=== PATIENT | male | born 2005 | race Caucasian/White ===

== ENCOUNTER 2025-08-13 13:05 | Outpatient (REF) | payer MEDICAID, SELFPAY ==
--- OUTSIDE RECORDS SUMMARY | 2025-08-13 09:15 | XMS_ITS | Encounter Summary ---
Author Organization [employer] Address [address] [facility] [address] [place] [address] Care Team Providers Care Grocery Store Manager Name Role Phone Nasreen Eaton Primary Care Provider [phone] Encounter Details Date Type Department Care Team ([facility] Contact Info) Description 08/13/2025 9:15 AM EST Office Visit [facility] MED [facility] PED[facility] [address] [place] [address] Nasreen Eaton FNP [address] [place] [address] Encounter for routine history and physical examination of adult (Primary Dx); Vision screen without abnormal findings; Dietary counseling; Exercise counseling; Sleep difficulties Social History Tobacco Use Types Packs/Day Years Used Date Smoking Tobacco: Former Cigarettes Passive Smoke Exposure: Never Smokeless Tobacco: Never Tobacco Cessation:Counseling Given: Not Answered Alcohol Answer Date Recorded How often do you have a drink containing alcohol ? 0 08/13/2025 How many drinks containing a lcohol do you have on a typical day when you are drinking? 0 08/13/2025 How often do you have six or more drinks on one occasion? 0 08/13/2025 Depression Answer Date Recorded Patient Health Questionnaire-9 Score 3 08/13/2025 Patient Health Questionnaire-9 Score 3 08/13/2025 Last PHQ-9: Questionnaire Data Not on file 1 Housing Stability Answer Date Recorded What is your housing situation today? I have pati callahan 07/23/[address] you li ve. Do you have problems with any of the following? None of the above 07/23/2025 Food Insecurity Answer Date Recorded Within the past 12 months, y ou worried that your food would run out before you got money to buy more: Never True 07/23/2025 Within the past 12 months,th e food you bought just didn't last and you didn't have enough money to get more: Never True 03/2025 Transportation Answer Date Recorded In the past 12 months, has l ack of transportation kept you from medical appts, meetings, work or from getting things needed for daily living? No 07/23/2025 Utilities Answer Date Recorded In the past 12 months, has t he electric, gas, oil or water company threatened to shut off services in your home? No 07/23/2025 Depression Answer Date Recorded Patient Health Questionnaire-2 Score 0 08/13/2025 Internet Access Answer Date Recorded Internet Access Q1 Yes 07/23/2025 Internet Access Q2 Not on file 07/23/2025 Sex and Gender Information Value Date Recorded Sex Assigned at Male 06/15/2022 10:21 AM EDT Legal Sex Male 10:21 AM EDT Gender Identity Male 06/15/2022 10:21 AM EDT Sexual Orientation Straight 06/15/2022 10 :21 AM EDT documented as of this encounter Last Filed Vital Signs Vital Sign Reading Time Taken Comments Blood Pressure 124/72 08/13/2025 9:31 AM EST Pulse 56 08/13/2025 9:31 AM EST Temperature 36.6 C (97.8 F) 08/13/2025 9:31 AM EST Respiratory Rate 16 08/13/2025 9:31 AM EST Oxygen Saturation 99% 08/13/2025 9:31 AM EST Inhaled Oxygen Concentration - - Weight 70.3 kg (155 lb) 08/13/2025 9:31 AM EST Height 162.6 cm (5' 4 ) 08/13/2025 9:31 AM EST Body Mass Index 26.61 08/13/2025 9:31 AM EST documented in this encounter Functional Status * Audit Alcohol Screening Question Answer Date of Assessment Author How many times in the past y ear have you had 5 or more (for men) or 4 or more (for women) drinks in a day? 0 08/13/2025 9:56 AM EST Nasreen Eaton F TRIPE SCRAPER Score 0 08/13/2025 9:56 AM Nasreen Nicholson FNP How often do you have a drin k containing alcohol? 0 08/13/2025 9:56 AM Nasreen Herrera F NP How many drinks containing a lcohol do you have on a typical day when you are drinking? 0 08/13/2025 9:56 AM Nasreen Herrera F NP How often do you have six or more drinks on one occasion? 0 08/13/2025 9:56 AM Magda Herrera FNP Audit-C Score 0 08/13/2025 9:56 AM Nasreen Shin FNP * Hearing & Vision Screening Documentation - please add an appropriate diagnosis to ensure correct billing of the hearing/vision screen Question Answer Date of Assessment Author Vision Screening Completed? Yes 08/13/2025 10:11 AM Flori Byrd [facility] Vision Codes DE SCREENING TEST VISUAL ACUITY QUANTITATIVE BILAT - 20939 08/13/2025 10:11 AM Flori Byrd [place] * Over the past 2 weeks, how often have you been bothered by any of the following problems? Question Answer Date of Assessment Author Patient Health Questionnaire -2 Score 0 08/13/2025 9:53 AM Nasreen Herrera F NP * Little interest or pleasure in doing things Answer Date of Assessment Author Not at all 08/13/2025 9:53 AM Angel Herrera FNP * Feeling down, depressed, or hopeless Answer Date of Assessment Author Not at all 08/13/2025 9:53 AM Angel Herrera FNP * Trouble falling or staying asleep, or sleeping too much Answer Date of Assessment Author Nearly every day 08/13/2025 9:53 AM Nasreen Herrera FNP * Feeling tired or having little energy Answer Date of Assessment Author Not at all 08/13/2025 9:53 AM Angel Herrera FNP * Poor appetite or overeating Answer Date of Assessment Author Not at all 08/13/2025 9:53 AM Angel Herrera FNP * Feeling bad about yourself - or that you are a failure or have let yourself or your family down Answer Date of Assessment Author Not at all 08/13/2025 9:53 AM Angel Herrera FNP * Trouble concentrating on things, such as reading the newspaper or watching television Answer Date of Assessment Author Not at all 08/13/2025 9:53 AM Angel Herrera FNP * Moving or speaking so slowly that other people could have noticed? Or the opposite - being so fidgety or restless that you have been moving around a lot more than usual. Answer Date of Assessment Author Not at all 08/13/2025 9:53 AM Angel Herrera FNP * Thoughts that you would be better off or hurting yourself in some way Answer Date of Assessment Author Not at all 08/13/2025 9:53 AM Angel Herrera FNP * Patient Health Questionnaire-9 Score Answer Date of Assessment Author 3 08/13/2025 9:53 AM Angel Herrera FNP * How difficult have these problems made it for you to do your work, take care of things at home, or get along with other people? Answer Date of Assessment Author Not difficult at all 08/13/2025 9:53 AM Nasreen Shin FNP documented as of this encounter Progress Notes * FRAN Enriquez - 08/13/2025 9:15 AM EST Subjective: Logan Javier is a 20 y.o. male who presents to the office for a Physical Exam. HPI - Evaluated on 07/23/25 for rash - significantly improved with treatment of mupirocin - Current concerns: difficulty sleeping. Reports going to bed around 8-10pm, waking up around 3am. Feels well rested during the day. Reports has distanced his phone from his room, not using before bed. Has taken medications to help with sleep in the past. Discussed options, will initially trial on magnesium supplement. Reviewed med use and SE. Problem List[1] Medical History[2] Surgical History[3] Family History[4] Social history: - Lives with girlfriend and 2 y/o daughter - Employment: [employer] - Exercise: Boxing 3x/week, amateur fighter - Nutrition: well balanced - Substance use: vaping marijuana 3x/week to help with sleep. No alcohol. Former tobacco use. Review of Systems Constitutional: Negative for chills and fever. Respiratory: Negative for cough and wheezing. Cardiovascular: Negative for chest pain and palpitations. Gastrointestinal: Negative for diarrhea, nausea and vomiting. Psychiatric/Behavioral: Positive for sleep disturbance. Negative for suicidal ideas. Visit Vitals BP 124/72 (BP Location: Left arm, Patient Position: Sitting, BP Cuff Size: Adult) Pulse 56 Temp 97.8 ??F (36.6 ??C) (Temporal) Resp 16 Ht 5' 4 (1.626 m) Wt 155 lb (70.3 kg) SpO2 99% BMI 26.61 kg/m?? Smoking Status Former BSA 1.78 m?? Physical Exam Vitals reviewed. Constitutional: General: He is not in acute distress. Appearance: Normal appearance. HENT: Head: Atraumatic. Right Ear: Tympanic membrane, ear canal and external ear normal. Left Ear: Tympanic membrane, ear canal and external ear normal. Nose: Nose normal. No congestion. Mouth/Throat: Mouth: Mucous membranes are moist. Pharynx: No oropharyngeal exudate or posterior oropharyngeal erythema. Eyes: General: Right eye: No discharge. Left eye: No discharge. Pupils: Pupils are equal, round, and reactive to light. Cardiovascular: Rate and Rhythm: Normal rate and regular rhythm. Pulmonary: Effort: Pulmonary effort is normal. No respiratory distress. Breath sounds: Normal breath sounds. No stridor. Abdominal: General: Bowel sounds are normal. There is no distension. Palpations: Abdomen is soft. Musculoskeletal: General: Normal range of motion. Skin: General: Skin is warm. Neurological: Mental Status: He is alert and oriented to person, place, and time. Psychiatric: Mood and Affect: Mood normal. Behavior: Behavior normal. Problem List Items Addressed This Visit Sleep Sleep difficulties Current Assessment & Plan - Start magnesium 400 mg nightly - Reviewed sleep hygiene Other Visit Diagnoses Encounter for routine history and physical examination of adult - Primary -Cardiopulmonary exam WNL -Encouraged healthy lifestyle habits including routine physical exercise and diet rich in fruits and vegetables Relevant Orders Lipid Panel, Standard Hemoglobin A1c TSH with Reflex to Free T4 Comprehensive Metabolic Panel CBC auto differential HIV-1/2 Antigen and Antibodies, Fourth Generation, with Reflexes RPR (Monitor) with Reflex to Titer Hepatitis C Antibody with Reflex to HCV, RNA, Quantitative, Real-Time PCR Chlamydia/Trichomonas/Neisseria gonorrhoeae, PCR, Urine Chlamydia/N. Gonorrhoeae RNA, TMA, Throat Vision screen without abnormal findings Dietary counseling Exercise counseling Follow up: 3 months for sleep, sooner as needed Current Medications[5] [1] Patient Active Problem List Diagnosis Sleep difficulties [2] Past Medical History: Diagnosis Date Dental caries Foster care (status) 11/09/2022 Mild intermittent asthma 09/24/2015 [3] Past Surgical History: Procedure Laterality Date ANTERIOR CRUCIATE LIGAMENT REPAIR Right 14-16 y/o, surgery at [facility] ELBOW SURGERY Left Approx 10 y.o [4] Family History Problem Relation Name Age of Onset Cancer Maternal Grandmother [5] Current Outpatient Medications Medication Sig Dispense Refill magnesium oxide (Mag-Ox) 400 MG tablet Take 1 tablet (400 mg) by mouth at bedtime. 90 tablet 1 No current facility-administered medications for this visit. documented in this encounter Miscellaneous Notes * Assessment & Plan Note - FRAN Enriquez - 08/13/2025 10:24 AM EST Associated Problem(s): Sleep difficulties - Start magnesium 400 mg nightly - Reviewed sleep hygiene documented in this encounter Plan of Treatment Scheduled Orders Name Type Priority Associated Diagnoses Orde r Schedule Lipid Panel, Standard Lab Routine Encounter for routine history and physical examination of adult Expected: 08/13/2025 (Approximate), Expires: 08/13/2026 Hemoglobin A1c Lab Routine Encounter for routine history and physical examination of adult Expected: 08/13/2025 (Approximate), Expires: 08/13/2026 TSH with Reflex to Free T4 Lab Routine Encounter for routine history and physical examination of adult Expected: 08/13/2025 (Approximate), Expires: 08/13/2026 Comprehensive Metabolic Panel Lab Routine Encounter for routine history and physical examination of adult Expected: 08/13/2025 (Approximate), Expires: 08/13/2026 CBC auto differential Lab Routine Encounter for routine history and physical examination of adult Expected: 08/13/2025, Expires: 08/13/2026 HIV-1/2 Antigen and Antibodies, Fourth Generation, with Reflexes Lab Routine Encounter for routine history and physical examination of adult Expected: 08/13/2025 (Approximate), Expires: 08/13/2026 RPR (Monitor) with Reflex to Titer Lab Routine Encounter for routine history and physical examination of adult Expected: 08/13/2025, Expires: 08/13/2026 Hepatitis C Antibody with Reflex to HCV, RNA, Quantitative, Real-Time PCR Lab Routine Encounter for routine history and physical examination of adult Expected: 08/13/2025, Expires: 08/13/2026 Chlamydia/Trichomonas/Ne isseria gonorrhoeae, PCR, Urine Lab Routine Encounter for routine history and physical examination of adult Expected: 08/13/2025 (Approximate), Expires: 08/13/2026 Chlamydia/N. Gonorrhoeae RNA, TMA, Throat Microbiology Routine Encounter for routine history and physical examination of adult Ordered: 08/13/2025 documented as of this encounter Visit Diagnoses Diagnosis Encounter for routine history and physical examination of adult- Primary Vision screen without abnormal findings Dietary counseling Dietary surveillance and counseling Exercise counseling Sleep difficulties documented in this encounter Additional Health Concerns Assessment Noted Time PHQ-9 Depression Total Score: 3 08/13/20 25 9:53 AM EST documented as of this encounter Care Teams Grocery Store Manager Relationship Specialty Start Date End Date Nasreen Eaton FNP [address] [place] [id number] PCP - General Family Medicine 08/13/25 documented as of this encounter
--- OUTSIDE RECORDS SUMMARY | 2025-08-13 15:07 | XMS_ITS | Clinical Summary ---
Author Organization [facility] Address [address] [place] [address] Care Team Providers Care Urgent Care Technician Name Role Phone Unavailable Primary Care Provider Unavailabl e Social History Tobacco Use Types Packs/Day Years Used Date Smoking Tobacco: Never Assessed Sex and Gender Information Value Date Recorded Sex Assigned at Not on file Legal Sex Male 4:47 PM EST Gender Identity Not on file Sexual Orientation Not on file Plan of Treatment Health Maintenance Due Date Last Done Comments HPV Vaccines (1 - Male 3-dos e series) 2019 Meningococcal B Vaccine (1 o f 2 - Standard) 2020 DTaP,Tdap,and Td Vaccines (1 - Tdap) 2023 Hepatitis B Vaccines (1 of 3 - 19+ 3-dose series) 2023 Annual Well Child Visit (3-2 1 years old) 09/14/2023 HIV Screening 09/14/2023 Hepatitis C Screening 09/14/2023 Social Influencers of Health Screening 09/14/2023 Depression Screening 08/16/2024 COVID-19 Vaccine (1 - 2024-2 6 season) 2025 Influenza Vaccine (#1) 2025 RSV Immunization Adult Patie nts (1 - 1-dose 75+ series) 2079 HIB Vaccines Aged Out No longer eligi ble based on patient's age to complete this topic Hepatitis A Vaccines Aged Out No long er eligible based on patient's age to complete this topic IPV Vaccines Aged Out No longer eligi ble based on patient's age to complete this topic MMR Vaccines Aged Out No longer eligi ble based on patient's age to complete this topic Meningococcal ACWY Vaccine Aged Out N o longer eligible based on patient's age to complete this topic Pneumococcal Vaccine: Pediat rics (0 to 5 Years) and At-Risk Patients (6 to 49 Years) Aged Out No longer eligible b ased on patient's age to complete this topic RSV Immunization Patients Un krystina 20 months Aged Out No longer eligible b ased on patient's age to complete this topic Varicella Vaccines Aged Out No longer eligible based on patient's age to complete this topic
--- OUTSIDE RECORDS SUMMARY | 2025-08-13 15:07 | XMS_ITS | Encounter Summary ---
Author Organization [employer] Address [address] [facility] [address] [place] [address] Care Team Providers Care Clean Up Person Name Role Phone Nasreen Eaton FRAN Primary Care Provider [phone] Encounter Details Date Type Department Care Team (Latest Contact Info) Description 08/13/2025 Travel Social History Tobacco Use Types Packs/Day Years Used Date Smoking Tobacco: Former Cigarettes Passive Smoke Exposure: Never Smokeless Tobacco: Never Alcohol Answer Date Recorded How often do [...] AM EDT documented as of this encounter Plan of Treatment Not on file documented as of this encounter Visit Diagnoses Not on filedocumented in this encounter Additional Health Concerns Assessment Noted Time PHQ-9 Depression Total Score: 3 08/13/20 25 9:53 AM EST documented as of this encounter Care Teams Clean Up Person Relationship Specialty Start Date End Date Nasreen Eaton FNP [address] [place] [phone] PCP - General Family Medicine 08/13/25 documented as of this encounter
--- OUTSIDE RECORDS SUMMARY | 2025-08-13 15:08 | XMS_ITS | Encounter Summary ---
Author Organization [employer] Address [address] [place] [address] [address] [place] [address] Care Team Providers Care License Registration Examiner Name Role Phone Lisa Brown MD Primary Care Provider [phone] Reason for Visit * Reason Onset Date Comments Chart Prep 08/08/2025 Encounter Details Date Type Department Care Team ([facility] Contact Info) Description 08/08/2025 Telephone [facility] MED & PEDS [address] [place] [address] Lisa Brown MD [address] [place] [address] Chart Prep Social History Tobacco Use Types Packs/Day Years Used Date Smoking Tobacco: Former Cigarettes Passive Smoke Exposure: Never Smokeless Tobacco: Never Depression Answer Date Recorded Patient Health Questionnaire-9 Score 3 11/09/2022 Housing Stability Answer Date Recorded What is [...] Date Recorded Patient Health Questionnaire-2 Score 0 11/09/2022 Internet Access Answer Date Recorded Internet Access Q1 Yes 07/23/2025 Internet Access Q2 Not on file 07/23/2025 Sex and Gender Information Value Date Recorded Sex Assigned at Male 06/15/2022 10:21 AM EDT Legal Sex Male 10:21 AM EDT Gender Identity Male 06/15/2022 10:21 AM EDT Sexual Orientation Straight 06/15/2022 10 :21 AM EDT documented as of this encounter Miscellaneous Notes * Telephone Encounter - Keisha Kaur MA - 08/08/2025 11:38 AM EST Chart Prep Labs: not applicable Images: not applicable Referrals: not applicable Vaccines due: Covid, Flu, and PCV20 Screenings: STI screening and PISQ Overdue care gaps: SBIRT, PHQ-9, Oral health screening, Disability screen, and Tobacco documented in this encounter Plan of Treatment Not on file documented as of this encounter Visit Diagnoses Not on filedocumented in this encounter Additional Health Concerns Assessment Noted Time PHQ-9 Depression Total Score: 3 11/10/19 23 3:08 PM EDT documented as of this encounter Care Teams License Registration Examiner Relationship Specialty Start Date End Date Lisa Brown MD [address] [place] [address] PCP - General Family Medicine 09/27/23 08/12/25 documented as of this encounter
--- OUTSIDE RECORDS SUMMARY | 2025-08-13 15:08 | XMS_ITS | Clinical Summary ---
Author Organization [employer] Address [address] [place] [address] Care Team Providers Care Trip Follower Name Role Phone Nasreen Eaton FRAN Primary Care Provider [phone] Allergies No known active allergies Medications magnesium oxide (Mag-Ox) 400 MG tablet Take 1 tablet (400 mg) by mouth at bedtime. 90 tablet 1 5 08/13/20 26 Active triamcinolone (Kenalog) 0.1 % cream Apply topically if needed in the morning and at bedtime (pain and swelling). 30 g 5 08/13/20 25 Discontinue d(Therapy completed) mupirocin (Bactroban) 2 % ointment Apply topically 3 times daily for 10 days. (Use as needed to help prevent against bacterial infection) 22 g 5 08/02/20 25 Active Problems Problem Noted Date Diagnosed Date Sleep difficulties 08/13/2025 Assessment & Plan (08/13/2025 10:24 AM EST): - Start magnesium 400 mg nightly - Reviewed sleep hygiene Resolved Problems Problem Noted Date Diagnosed Date Resolved Date Asthma 08/13/2025 08/13/2025 Foster care (status) 11/09/2022 025 Assessment & Plan (11/09/2022 3:07 PM EDT): He is on his own here at also he is living with family who he is not close with. He is dating the daughter of his old foster home. He seems well, denies depression and has lots of plans: boxing and college for culinary. He will follow up in a year with a new adult provider Dental caries 08/28/2022 08/13/2025 Gingival bleeding 08/28/2022 08/13/2025 Dental calculus 08/28/2022 08/13/2025 Mild intermittent asthma 09/24/2015 Late effect of fracture of upper extremity 07/06/2013 08/13/2025 Mental health problem 07/06/20132024 Encounters Date Type Department Care Team Description 08/13/2025 9:15 AM EST Office Visit [facility] [address] [place] [address] Nasreen Eaton FNP Encounter for routine history and physical examination of adult (Primary Dx); Vision screen without abnormal findings; Dietary counseling; Exercise counseling; Sleep difficulties 08/13/2025 Travel 08/08/2025 Telephone [facility] [address] [place] [address] Lisa Brown MD Chart Prep 07/23/2025 11:30 AM EST Office Visit [facility] [address] [place] [address] Nasreen Eaton FNP Excoriated papule (Primary Dx) 07/23/2025 Travel 07/20/2025 Telephone [facility] [address] [place] [address] Lisa Brown MD 07/20/2025 Telephone [facility] [address] [place] [address] Nasreen Eaton FNP 07/17/2025 Telephone [facility] [address] [place] [address] Lisa Brown MD Nurse Triage from Last 3 Months Immunizations Immunization Administration Dates Next Due DTaP 07/19/2008, 6,02/27/2005,09/15 DTaP / IPV 2004 HPV 9-Valent 06/19/2016,01/10/2016,12/09/2015 Hep A, ped/adol, 2 dose 01/10/2016,08/29/2009 Hep B, Adolescent or Pediatric 02/27/2005,2004,2004 HiB, unspecified 10/28/2005,02/27/2005, 5 Hib (PRP-T) 2004 IPV 07/19/2008, 5,2004,07/14 Influenza injectable quadriv alent preservative free 06/17/2022,08/31/2020,06/10/2017,06/19 Influenza, Split (incl. mae fied surface antigen) 07/06/2013 MMR 07/19/2008,05/13/2005 Meningococcal MCV4P [id number]-135 10/01/2020,12/09/19 16 Pneumococcal Conjugate PCV 13 05/13/2005 ,02/27/2005,2004,07/14 Tdap 12/09/2015 Varicella 07/19/2008,05/13/2005 Family History Medical History Relation Name Comments Cancer Maternal Grandmother Relation Name Status Comments Maternal Grandmother Social History Tobacco Use Types Packs/Day Years [...] Orientation Straight 06/15/2022 10 :21 AM EDT Last Filed Vital Signs Vital Sign Reading [...] Mass Index 26.61 08/13/2025 9:31 AM EST Plan of Treatment Health Maintenance Due Date Last Done Comments Chlamydia and Gonorrhea Screening 2004 Dental Oral Exam 2004 Dental X-Ray: Bitewings 2004 HIV Screening 2004 Hepatitis C Screening 2022 Dental Prophylaxis 02/26/2023 08/28/2022 Dental X-Ray: Full Mouth 04/09/2025 04/08/2022, 02/13 DTaP/Tdap/Td Vaccines (7 - Td or Tdap) 12/08/2025 12/09/2015, 07/19/2008, 10/28/2005, Additional history exists Influenza Vaccine (#1) 2026 , 08/31/2020, 06/10/2017, Additional history exists Postponed from 04/16/2025 (Patient Refused) SDOH Screening 07/23/2026 07/23/2025 Alcohol/Substance Use Screening 08/13/2026 08/13/2025 COVID-19 Vaccine ( - season) 2026 Postponed from 04/16/2025 (Patient Refused) Depression Screening 08/13/2026 08/13/2025, 08/13/20 Disability Screening 08/13/2026 08/13/2025 Family Planning (PISQ) 08/13/2026 08/13/2025 Meningococcal B Vaccine (1 of 2 - Standard) 08/13/2026 Postponed from 2020 (Patient Refused) Tobacco Screening 08/13/2026 08/13/2025 Zoster Vaccines (1 of 2) 2054 RSV Patients and Patients Aged 60 years or older (1 - 1-dose 75+ series) 2079 Hepatitis B Vaccines Completed 02/27/2005, 2004, 2004 Pneumococcal Vaccine: Pediatrics (0 to 5 Years) and At-Risk Patients (6 to 49) Years Completed 05/13/2005, 02/27/2005, 2004, Additional history exists HIB Vaccines Completed 10/28/2005, 02/13, 2004, Additional history exists IPV Vaccines Completed 07/19/2008, 02/13, 2004, Additional history exists Hepatitis A Vaccines Completed 01/10/2016, 08/29/19 10 HPV Vaccines Completed 06/19/2016, 12/15, 12/09/2015 Meningococcal Vaccine Completed 10/01/2020, 016 RSV under 20 months Aged Out No longe r eligible based on patient's age to complete this topic Rotavirus Vaccines Aged Out No longer eligible based on patient's age to complete this topic Procedures Procedure Name Priority Date/Time Associated Diagnosis Comments Full PROPHYLAXIS - ADULT Routine 023 3:00 PM EST from Last 3 Months or Most Recently Relevant to Health Maintenance Insurance [place], [place] [facility] MEDICAID STAND CHILD Care Teams Trip Follower Relationship Specialty Start Date End Date Nasreen Eaton FNP [address] [place] [address] PCP - General Family Medicine 08/13/25
[2025-08-14 22:07] LABS: C. Trachomatis RNA TMA, Throat NOT DETECTED (NOT DETECTED); N. gonorrhoeae RNA TMA, Throat NOT DETECTED (NOT DETECTED)
== END 2025-08-13 13:06 | disposition home or self-care (01) ==
LOC: HO.CHCLNP 13:05
PROVIDERS: Visit Provider Registered Nurse
DX: Z00.00 Encounter for general adult medical examination without abnormal findings (principal); Z20.2 Contact with and (suspected) exposure to infections with a predominantly sexual mode of transmission
CPT/HCPCS: 87491; 87591